=== PATIENT | male | born 1985 | race Caucasian/White ===

== ENCOUNTER 2016-07-18 15:04 | Emergency (ER) | payer BC, OTHER ==
[2016-07-18 15:09] VITALS: BP 121/80; PULSE 88; TEMP 97.5; BMI 38.4
[2016-07-18] MEDS ORDERED: DIPHTH,PERTUSS(ACELL),TET 0.5 ML DISP.SYRIN IM ONE (15:13)
--- NOTE | 2016-07-18 15:13 | PDOC ---
History of Present Illness - General History Source: Patient Exam Limitations: No Limitations - History of Present Illness Initial Comments: 07/18/16 15:27 The patient is a 30 year old male, with no significant past medical history, who presents today with a forehead laceration. The patient states that he was throwing a galvanized pipe into the garbage, when it rebounded and hit him in the head. He felt blood dripping down his forehead and came to the emergency department. Presently, there is minimal active bleeding. He had a wool hat on when the pipe hit his head. He denies LOC. The patient is unsure when his last tetanus shot was. Denies headache, lightheadedness, dizziness. Denies blurry vision, double vision, or other changes in vision. Denies any other trauma. Denies chest pain, SOB. Allergies: None reported <Krystal Montana - Last Filed: 07/18/16 17:01> - General History Source: Patient Exam Limitations: No Limitations <Natty Mir - Last Filed: 07/19/16 07:38> - General Chief Complaint: Laceration Stated Complaint: HEAD LAC Time Seen by Provider: 07/18/16 15:06 Past History <Krystal Montana - Last Filed: 07/18/16 17:01> <Natty iMr - Last Filed: 07/19/16 07:38> - Past Medical History Allergies/Adverse Reactions: Allergies Allergy/AdvReac Type Severity Reaction Status Date / Time No Known Allergies Allergy Verified 07/18/16 15:05 Home Medications: Ambulatory Orders Cephalexin Monohydrate [Keflex -] 500 mg PO Q6H #20 capsule 07/18/16 Fenofibrate 0 mg PO DAILY 07/18/16 Review of Systems - Review of Systems Able to Perform ROS?: Yes Comments:: 07/18/16 15:30 GENERAL/CONSTITUTIONAL: No: fever, chills, weakness, loss of appetite. HEAD, EYES, EARS, NOSE AND THROAT: No: change in vision, ear pain, discharge, sore throat, throat swelling. CARDIOVASCULAR: No: chest pain, lightheadedness, palpitations, syncope RESPIRATORY: No: cough, shortness of breath, wheezing, hemoptysis, stridor. GASTROINTESTINAL: No: nausea, vomiting, abdominal cramping, diarrhea, rectal bleeding, constipation. GENITOURINARY: No: dysuria, hematuria, frequency, urgency, flank pain. MUSCULOSKELETAL: No: back pain, neck pain, joint pain, muscle swelling or pain SKIN: Yes: laceration on the right forehead. No: lesions, pallor, rash or easy bruising. NEUROLOGIC: No: headache, vertigo, paresthesias, weakness ENDOCRINE: No: unexplained weight gain or loss HEMATOLOGIC/LYMPHATIC: No: anemia, easy bleeding, swelling nodes <Krystal Montana - Last Filed: 07/18/16 17:01> *Physical Exam - Vital Signs Last Vital Signs Temp Pulse Resp BP Pulse Ox 97.5 F L 88 16 121/80 100 07/18/16 15:04 07/18/16 15:04 07/18/16 15:04 07/18/16 15:04 07/18/16 15:04 - Physical Exam Comments: 07/18/16 15:30 GENERAL: The patient is in no acute distress. HEAD: +3cm laceration on the right forehead through the epidermis. Minimal active bleeding. EYES: PERRLA, EOMI, sclera anicteric, conjunctiva clear. HEART:Regular rate and rhythm, normal S1 and S2 without murmur, rub or gallop. EXTREMITIES: Normal range of motion, no edema. No clubbing or cyanosis. No erythema, or tenderness. NEUROLOGICAL: Cranial nerves II through XII grossly intact. Normal speech. No focal neurological deficits. <Krystal Montana - Last Filed: 07/18/16 17:01> Procedures - Laceration/Wound Repair Right Frontal Wound Length: 2.6 to 5.0 cm Wound Explored: clean Wound's Depth, Shape: superficial, linear Irrigated w/ Saline: Yes Betadine Prep: No Anesthesia: 1% Lidocaine Amount of Anesthetic (ccs): 3 Wound Debrided: minimal Wound Repaired With: Sutures Suture Size/Type: 5:0 Number of Sutures: 3 Layer Closure: No <Natty Mir - Last Filed: 07/19/16 07:38> ED Treatment Course - RADIOLOGY Radiograph Interpretation: 07/18/16 17:01 EXAM#: TYPE/EXAM: RESULT: [id number] CT/HEAD CT WITHOUT CONTRAST Status post trauma CT scan of the brain without intravenous contrast. The ventricles and basal cisterns appear unremarkable. No gross mass lesion, focal infarct or intracranial hemorrhage is identified. Mild mucosal thickening in the ethmoid air cells. Otherwise, the visualized paranasal sinuses and mastoid air cells are well-aerated. The calvarium is intact. There is mild soft tissue swelling over right side of the forehead. Impression: No evidence of a focal intracranial lesion or hemorrhage seen. Mild soft tissue swelling over right side of the forehead Reported By: Maksim Elizabeth MD 07/18/16 1632 <Krystal Montana - Last Filed: 07/18/16 17:01> Medical Decision Making - Medical Decision Making 07/18/16 15:08 A portion of this note was documented by scribe services under my direction. I have reviewed the details of the note, within reason, and agree with the documentation with the following case summary and management plan written by me. 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 <Krystal Montana - Last Filed: 07/18/16 17:01> - Discharge Dispostion Admit: No <Natty Mir - Last Filed: 07/19/16 07:38> Diagnosis at time of Disposition: Head trauma Qualifiers: Encounter type: initial encounter Qualified Code(s): S09.90XA - Unspecified injury of head, initial encounter Laceration of forehead Qualifiers: Encounter type: initial encounter Qualified Code(s): S01.81XA - Laceration without foreign body of other part of head, initial encounter - Discharge Dispostion Disposition: HOME Condition at time of disposition: Stable - Prescriptions Prescriptions: Cephalexin Monohydrate [Keflex -] 500 mg PO Q6H #20 capsule - Patient Instructions Printed Discharge Instructions: DI for Laceration Repair, DI for Closed Head Injury Additional Instructions: Turner Thank you for coming in to the ER today Please take antibiotics as prescribed Please return to the ER in 7 days for suture removal Return to the ER for surrounding reddness, drainage from the wound Please keep the wound clean Apply bacitracin
== END 2016-07-18 16:36 | disposition home or self-care (01) ==
LOC: FER 15:04
PROC: 3E0234Z Introduction of Serum, Toxoid and Vaccine into Muscle, Percutaneous Approach (ICD-10-PCS; principal; 2016-07-18)
DX: S01.81XA Laceration without foreign body of other part of head, initial encounter (principal); S09.90XA Unspecified injury of head, initial encounter; W20.8XXA Other cause of strike by thrown, projected or falling object, initial encounter; Y93.89 Activity, other specified; Y92.89 Other specified places as the place of occurrence of the external cause; Y99.0 Civilian activity done for income or pay
CPT/HCPCS: 70450-TC; 90471; 90715; 99283-25

== ENCOUNTER 2016-07-25 15:53 | Emergency (ER) | payer BC, OTHER ==
--- NOTE | 2016-07-25 16:03 | PDOC ---
History of Present Illness - General History Source: Patient, Old Records Exam Limitations: No Limitations - History of Present Illness Initial Comments: 07/25/16 16:05 The patient is a 30 year old male with no significant past medical history, who presents to the emergency department today for suture removal from his right forehead. The patient states that 7 days ago he was at work when he accidentally hit himself in the head with a piece of pipe. The patient presented to this ER and received 3 sutures. PAST MEDICAL HISTORY: no significant history reported. PAST SURGICAL HISTORY: no significant history reported. FAMILY HISTORY: no pertinent history reported. SOCIAL HISTORY: Pt is employed. No habits reported. MEDICATIONS: reviewed ALLERGIES: As per nursing notes <Teo Pichardo - Last Filed: 07/25/16 16:05> <Kin Briscoe - Last Filed: 07/25/16 16:07> - General Chief Complaint: Suture/Staple Removal(Here) Stated Complaint: RIGHT FOREHEAD SUTURE REMOVAL Time Seen by Provider: 07/25/16 15:55 Past History <Teo Pichardo - Last Filed: 07/25/16 16:05> - Past Medical History Hypercholesterolemia: Yes - Psycho/Social/Smoking Cessation Hx Anxiety: No Suicidal Ideation: No Smoking History: Current every day smoker Number of Cigarettes Smoked Daily: 10 'Breaking Loose' booklet given: 07/18/16 Hx Alcohol Use: Yes Drug/Substance Use Hx: No Substance Use Type: Alcohol <Kin Briscoe - Last Filed: 07/25/16 16:07> - Past Medical History Allergies/Adverse Reactions: Allergies Allergy/AdvReac Type Severity Reaction Status Date / Time No Known Allergies Allergy Verified 07/18/16 15:05 Home Medications: Ambulatory Orders Fenofibrate 40 mg PO DAILY 07/18/16 Review of Systems - Review of Systems Able to Perform ROS?: Yes Comments:: 07/25/16 16:06 CONSTITUTIONAL: Absent: Fever, Chills, Diaphoresis, Generalized Weakness, Malaise, Loss of Appetite HEENT: Present: 3 sutures located on the right forehead. Absent: Rhinorrhea, Nasal Congestion, Throat Pain, Throat Swelling, Difficulty Swallowing, Mouth Swelling, Ear Pain, Eye Pain, Visual Changes CARDIOVASCULAR: Absent: Chest Pain, Syncope, Palpitations, Irregular Heart Rate, Lightheadedness , Peripheral Edema MUSCULOSKELETAL: Absent: Myalgia, Arthralgia, Joint Swelling, Back pain, Neck Pain SKIN: Absent: Rash, Itching, Pallor <Teo Pichardo - Last Filed: 07/25/16 16:05> *Physical Exam - Physical Exam Comments: 07/25/16 16:06 GENERAL: The patient is awake, alert, and fully oriented, in no acute distress. HEAD: Wound located on right forehead is clean, dry, with no redness or discharge. EYES: Pupils equal, round and reactive to light, extraocular movements intact, sclera anicteric, conjunctiva clear. EXTREMITIES: Normal range of motion, no edema. Sensation intact. Circulation intact. NEUROLOGICAL: Normal speech, normal gait. PSYCH: Normal mood, normal affect. SKIN: Warm, Dry, normal turgor, no rashes or lesions noted. <Teo Pichardo - Last Filed: 07/25/16 16:05> Medical Decision Making - Medical Decision Making 07/25/16 16:07 Patient presents 7 days after laceration to the right forehead. He was seen here in the ED and had tetanus booster and CT scan of the head. He currently denies complaints. The wound is healing well. There is no redness or discharge. Sutures are removed, bacitracin applied, patient advised okay to shower and resume normal activities. <Kin Briscoe - Last Filed: 07/25/16 16:07> *DC/Admit/Observation/Transfer - Attestations Scribe Attestion: 07/25/16 16:06 Documentation prepared by Teo Pichardo, acting as adjunct faculty for medical terminology for Kin Briscoe MD. <Teo Pichardo - Last Filed: 07/25/16 16:05> - Discharge Dispostion Admit: No <Kin Briscoe - Last Filed: 07/25/16 16:07> Diagnosis at time of Disposition: Laceration of forehead Qualifiers: Encounter type: sequela Qualified Code(s): S01.81XS - Laceration without foreign body of other part of head, sequela - Discharge Dispostion Condition at time of disposition: Good - Patient Instructions Printed Discharge Instructions: DI for Suture Removal
[2016-07-25 16:08] VITALS: PULSE 84; TEMP 97.8; BMI 38.0
[2016-07-25 16:12] VITALS: BP 120/80
== END 2016-07-25 16:13 | disposition home or self-care (01) ==
LOC: FER 15:53
DX: Z48.02 Encounter for removal of sutures (principal)
CPT/HCPCS: 99282-25

== ENCOUNTER 2017-03-03 18:10 | Emergency (ER) | payer BC, OTHER ==
[2017-03-03 18:21] VITALS: BMI 39.9
--- NOTE | 2017-03-03 18:28 | PDOC ---
History of Present Illness - General History Source: Patient Exam Limitations: No Limitations - History of Present Illness Initial Comments: 03/03/17 18:56 The patient is 31 year old male, with significant past medical history of alcohol and cocaine use, who presents today complaining of restlessness and numbness and tingling in the lips, teeth and extremities after drinking alcohol and snorting cocaine for the last 3 days. He reports feeling clammy and has echoing in his ears. His last drink was on Thursday, 2 days ago, and he last used cocaine on Thursday night. He notes that he has been using cocaine recreationally for the past 15 years and has not had a reaction like this before. Denies chest pain, SOB, palpitations. Denies headache, dizziness. Denies fever, chills, nausea, vomiting. Denies visual changes. Allergies: NKDA Social Hx: Tobacco use. Alcohol use. Cocaine use. PCP- none <Krystal Montana - Last Filed: 03/03/17 18:55> - General History Source: Patient Exam Limitations: No Limitations <Natty Mir - Last Filed: 03/04/17 09:04> - General Stated Complaint: "DONT FEEL WELL" Time Seen by Provider: 03/03/17 18:22 Past History <Krystal Montana - Last Filed: 03/03/17 18:55> - Past Medical History Hypercholesterolemia: Yes - Immunization History TDAP Vaccination: (07/18/2016) Immunization Up to Date: Yes - Suicide/Smoking/Psychosocial Hx Smoking History: Current every day smoker Have you smoked in the past 12 months: Yes Number of Cigarettes Smoked Daily: 15 Information on smoking cessation initiated: Yes 'Breaking Loose' booklet given: 03/03/17 Hx Alcohol Use: Yes Drug/Substance Use Hx: No Substance Use Type: Alcohol <Natty Mir - Last Filed: 03/04/17 09:04> - Past Medical History Allergies/Adverse Reactions: Allergies Allergy/AdvReac Type Severity Reaction Status Date / Time No Known Allergies Allergy Verified 03/03/17 18:18 Home Medications: Ambulatory Orders Fenofibrate 145 mg PO DAILY 07/18/16 Review of Systems - Review of Systems Able to Perform ROS?: Yes Comments:: 03/03/17 18:56 GENERAL/CONSTITUTIONAL: +restlessness. +Clammy No: fever, chills, weakness, loss of appetite. HEAD, EYES, EARS, NOSE AND THROAT: No: change in vision, ear pain, discharge, sore throat, throat swelling. CARDIOVASCULAR: No: chest pain, lightheadedness, palpitations, syncope RESPIRATORY: No: cough, shortness of breath, wheezing, hemoptysis, stridor. GASTROINTESTINAL: No: nausea, vomiting, abdominal cramping, diarrhea, rectal bleeding, constipation. GENITOURINARY: No: dysuria, hematuria, frequency, urgency, flank pain. MUSCULOSKELETAL: No: back pain, neck pain, joint pain, muscle swelling or pain SKIN: No: lesions, pallor, rash or easy bruising. NEUROLOGIC: +numbness and tingling of all extremities. No: headache, vertigo, weakness ENDOCRINE: No: unexplained weight gain or loss HEMATOLOGIC/LYMPHATIC: No: anemia, easy bleeding, swelling nodes <Krystal Montana - Last Filed: 03/03/17 18:55> *Physical Exam - Vital Signs Last Vital Signs Temp Pulse Resp BP Pulse Ox 98.8 F 93 H 18 140/84 97 03/03/17 18:10 03/03/17 18:10 03/03/17 18:10 03/03/17 18:10 03/03/17 18:10 - Physical Exam Comments: 03/03/17 18:56 GENERAL: The patient is very anxious. Tremulous HEAD: Normal with no signs of trauma. EYES: PERRLA, EOMI, sclera anicteric, conjunctiva clear. ENT: Tongue fasciculations. Ears normal, nares patent, oropharynx clear without exudates. Moist mucous membranes. NECK: Normal range of motion, supple without lymphadenopathy, JVD, or masses. LUNGS: Breath sounds equal, clear to auscultation bilaterally. No wheezes, and no crackles. HEART:Regular rate and rhythm, normal S1 and S2 without murmur, rub or gallop. ABDOMEN: Soft, nontender, normoactive bowel sounds. No guarding, no rebound. EXTREMITIES: Normal range of motion, no edema. No clubbing or cyanosis. No erythema, or tenderness. NEUROLOGICAL: Tremulous. Cranial nerves II through XII grossly intact. Normal speech. No focal neurological deficits. MUSCULOSKELETAL: Back nontender to palpation, no CVA tenderness SKIN: Warm, Dry, normal turgor, no rashes or lesions noted. <Krystal Montana - Last Filed: 03/03/17 18:55> - Vital Signs Last Vital Signs Temp Pulse Resp BP Pulse Ox 98.8 F 93 H 18 140/84 97 03/03/17 18:10 03/03/17 18:10 03/03/17 18:10 03/03/17 18:10 03/03/17 18:10 <Natty Mir - Last Filed: 03/04/17 09:04> Heart Score/ECG Review #1 ECG reviewed & interpreted by me at: 19:18 03/03/17 19:18 Twelve-lead EKG was performed and reviewed by me. There is normal sinus rhythm with a normal rate of 91 bpm. The axis is normal. The intervals are normal - pr: 168ms, QRS:110ms, QTc:487ms. There are no ST or T wave abnormalities. Impression: Normal twelve-lead EKG <Natty Mir - Last Filed: 03/04/17 09:04> ED Treatment Course - LABORATORY CBC & Chemistry Diagram: 03/03/17 18:50 03/03/17 18:50 <Natty Mir - Last Filed: 03/04/17 09:04> Medical Decision Making - Medical Decision Making 03/03/17 18:27 A portion of this note was documented by scribe services under my direction. I have reviewed the details of the note, within reason, and agree with the documentation with the following case summary and management plan written by me. Nursing documentation reviewed and incorporated into medical decision making This patient is a 31-year-old male who presents to the emergency department accompanied by his with a complaint of "I don't feel well". Patient states that he had a prior history of substance abuse Most recently, he has had binges of alcohol and cocaine use Pt is unable to tell me how much alcohol he has drank over the weekend He is unable to tell me how much Cocaine he has used He denies chest pain He reports hearing loss, then reports that he hears his family members speaking He denies headache He denies shortness of breath He denies DT, seizures in the past Pt does NOT want to do detox program He denies any traumatic injury He is here today because he is worried that something might be wrong with him Pt is anxious He has pressured speech No tachycardia Tongue fasciculations Hands tremulous Pt eyes wide Pupils 4mm bilaterally, reactive to light Will do labs Pt given Banana bag Will give Ativan and Librium to prevent withdrawal Pt may benefit from overnight stay Will re assess PT at bedside Pt signed out to Dr Moise <Natty Mir - Last Filed: 03/04/17 09:04> *DC/Admit/Observation/Transfer - Attestations Scribe Attestion: 03/03/17 18:56 Documentation prepared by CLAUDY Cisneros, acting as district medical examiner for Natty Mir MD. <Krystal Montana - Last Filed: 03/03/17 18:55> <Natty Mir - Last Filed: 03/04/17 09:04> Diagnosis at time of Disposition: Alcohol withdrawal, Cocaine use - Discharge Dispostion Disposition: HOME Condition at time of disposition: Stable - Referrals Referrals: Ines Rojas MD [Staff Physician] - - Patient Instructions Printed Discharge Instructions: DI for Alcohol Abuse Additional Instructions: Please follow up with your PMD. Please return to the ED with any further concerns. Please stop drinking alcohol and stop using cocaine.
[2017-03-03] MEDS ORDERED: MULTIVIT INJ. ADULT COMBO WITH VIT K 1 COMBO 10 ML VIAL IV ONE (19:01)
[2017-03-03] MEDS ORDERED: FOLIC ACID 5 MG/1 ML ONE (19:01)
[2017-03-03] MEDS ORDERED: FOLIC ACID INJECTION - 1 MG, THIAMINE HCL 100 MG, MULTIVIT INJECTION ADULT 10 ML in SOD... IVPB ONE (19:11)
[2017-03-03] MEDS ORDERED: chlordiazePOXIDE HCL 25 MG CAPSULE PO ONE (19:14)
[2017-03-03 19:16] LABS: ANION GAP 9 (8-16); CALCIUM 9.5 mg/dl (8.4-10.2); CO2 26 mmol/L (22-28); GLUCOSE,RANDOM 87 mg/dl (74-106)
[2017-03-03] MEDS ORDERED: chlordiazePOXIDE HCL 25 MG CAPSULE ONE (19:18)
[2017-03-03 19:23] LABS: BASOPHIL 0.3 % (0-2.0); EOSINOPHIL 2.3 % (0-4.5); MCHC 35.1 g/dl (32.0-35.9); MEAN CELL VOLUME 88.2 fl (80-96); MEAN PLT VOLUME 9.5 fl (7.5-11.1); NEUTROPHILS 66.3 % (42.8-82.8); PLATELET COUNT 186 K/MM3 (134-434); RDW 11.5 % (11.9-15.9); WHITE BLOOD COUNT 12.1 K/mm3 (4.0-10.8)
[2017-03-03 19:26] LABS: ALCOHOL < 5.0 mg/dl (0-5)
[2017-03-03 19:32] LABS: TROPONIN I (DFP) < 0.03 ng/ml (0.03-0.50)
--- NOTE | 2017-03-03 19:46 | PDOC ---
*Physical Exam - Vital Signs Last Vital Signs Temp Pulse Resp BP Pulse Ox 98.8 F 93 H 18 140/84 97 03/03/17 18:10 03/03/17 18:10 03/03/17 18:10 03/03/17 18:10 03/03/17 18:10 - Physical Exam Comments: 03/03/17 20:12 Constitutional: Awake, alert, oriented. Anxious Head: Normocephalic. Atraumatic Eyes: PERRL. EOMI. Conjunctivae are not pale. ENT: Not tongue fasciculating. Mucous membranes are moist and intact. Posterior pharynx without exudates or erythema. Uvula midline. Neck: Supple. Full ROM. No lymphadenopathy. Cardiovascular: Regular rate. Regular rhythm. S1, S2 regular. Distal pulses are 2+ and symmetric. Pulmonary/Chest: No evidence of respiratory distress. Clear to auscultation bilaterally No wheezing, rales or rhonchi. Abdominal: Soft and non-distended. There is no tenderness. No rebound, guarding or rigidity. No organomegaly. No palpable masses. Good bowel sounds. Back: No CVA tenderness. Musculoskeletal: No edema. No cyanosis. No clubbing. Full range of motion in all extremities. Nocalf tenderness. Radial/pedal pulses are intact and 2+ bilaterally Skin: Skin is warm and dry. No petechiae. No purpura. Neurological: Not tremulous. Alert and oriented to person, place, and time. Cranial nerves II-XII are grossly intact. Normal speech. Strength is grossly symmetric. No sensory deficits. <Krystal Montana - Last Filed: 03/03/17 20:12> - Vital Signs Last Vital Signs Temp Pulse Resp BP Pulse Ox 98.8 F 93 H 18 140/84 97 03/03/17 18:10 03/03/17 18:10 03/03/17 18:10 03/03/17 18:10 03/03/17 18:10 <Alina Moise - Last Filed: 03/03/17 20:32> ED Treatment Course - LABORATORY CBC & Chemistry Diagram: 03/03/17 18:50 03/03/17 18:50 - ADDITIONAL ORDERS Additional order review: Laboratory Results 03/03/17 03/03/17 18:50 18:50 Sodium 133 L Potassium 4.2 Chloride 98 Carbon Dioxide 26 Anion Gap 9 BUN 10 Creatinine 1.0 Random Glucose 87 Calcium 9.5 Troponin I < 0.03 L Alcohol, Quantitative < 5.0 03/03/17 18:50 RBC 5.14 MCV 88.2 MCHC 35.1 RDW 11.5 L MPV 9.5 Neutrophils % 66.3 Lymphocytes % 24.6 Monocytes % 6.5 Eosinophils % 2.3 Basophils % 0.3 - Medications Given in the ED: ED Medications Discontinued Medications Generic Name Dose Route Start Last Admin Trade Name Freq PRN Reason Stop Dose Admin Chlordiazepoxide HCl 25 mg 03/03/17 19:14 03/03/17 19:20 Librium - PO 03/03/17 19:15 25 mg ONCE ONE Administration Lorazepam 2 mg 03/03/17 19:11 03/03/17 19:00 Ativan Injection - IVPUSH 03/03/17 19:12 2 mg ONCE ONE Administration <Krystal Montana - Last Filed: 03/03/17 20:12> - LABORATORY CBC & Chemistry Diagram: 03/03/17 18:50 03/03/17 18:50 - ADDITIONAL ORDERS Additional order review: Laboratory Results 03/03/17 03/03/17 18:50 18:50 Sodium 133 L Potassium 4.2 Chloride 98 Carbon Dioxide 26 Anion Gap 9 BUN 10 Creatinine 1.0 Random Glucose 87 Calcium 9.5 Troponin I < 0.03 L Alcohol, Quantitative < 5.0 03/03/17 18:50 RBC 5.14 MCV 88.2 MCHC 35.1 RDW 11.5 L MPV 9.5 Neutrophils % 66.3 Lymphocytes % 24.6 Monocytes % 6.5 Eosinophils % 2.3 Basophils % 0.3 - Medications Given in the ED: ED Medications Discontinued Medications Generic Name Dose Route Start Last Admin Trade Name Freq PRN Reason Stop Dose Admin Chlordiazepoxide HCl 25 mg 03/03/17 19:14 03/03/17 19:20 Librium - PO 03/03/17 19:15 25 mg ONCE ONE Administration Lorazepam 2 mg 03/03/17 19:11 03/03/17 19:00 Ativan Injection - IVPUSH 03/03/17 19:12 2 mg ONCE ONE Administration <Alina Moise - Last Filed: 03/03/17 20:32> Medical Decision Making - Medical Decision Making 03/03/17 20:13 31 yr old male who comes in s/p alcohol intoxication and cocaine use for 3 days. -States that he used a new type of cocaine -He is anxious -Not tachycardic -Not tongue fasciculating -Not tremulous -Discharge to home after Banana bag is finished - Discussed his drug and alcohol use. He states that he has been drinking 2 days a month for 15 years and also been using cocaine for 2 days a month for 15 years and does not want to stop. He does not want detox or help with drug alcohol use <Krystal Montana - Last Filed: 03/03/17 20:12> - Medical Decision Making 03/03/17 20:30 pt re eval: states feeling better. states he uses etoh and cocaine 2x per month. does not want help for detox or to stay for alcohol withdrawal. discussed risks of alcohol withdrawal. states if he feels worse he will come back. no tongue fasiculations, no tremors. Heart RRR Pt appears anxious. Pt states he will follow up with the [facility] PMD. Denies all other complaints. Pt stable for d/c to home. <Alina Moise - Last Filed: 03/03/17 20:32> *DC/Admit/Observation/Transfer <Krystal Montana - Last Filed: 03/03/17 20:12> - Discharge Dispostion Admit: No - Attestations Physician Attestion: 03/03/17 20:32 I, Dr. Alina Moise, DO, attest that this document has been prepared under my direction and personally reviewed by me in its entirety. I further attest, that it accurately reflects all work, treatment, procedures and medical decision -making performed by me. <Alina Moise - Last Filed: 03/03/17 20:32> Diagnosis at time of Disposition: Alcohol withdrawal syndrome, Cocaine abuse - Discharge Dispostion Disposition: HOME - Referrals Referrals: Ines Rojas MD [Staff Physician] - - Patient Instructions Printed Discharge Instructions: DI for Alcohol Abuse Additional Instructions: Please follow up with your PMD. Please return to the ED with any further concerns. Please stop drinking alcohol and stop using cocaine.
[2017-03-03 20:49] VITALS: BP 119/68; PULSE 86; TEMP 98.1
--- NOTE | 2017-03-04 18:42 | EKG ---
Test Reason : Blood Pressure : / mmHG Vent. Rate : 091 BPM Atrial Rate : 091 BPM P-R Int : 168 ms QRS Dur : 110 ms QT Int : 396 ms P-R-T Axes : 039 -21 033 degrees QTc Int : 487 ms NORMAL SINUS RHYTHM PROLONGED QT RVCD NO PREVIOUS ECGS AVAILABLE Confirmed by MD ELOISA, MITUL ([id number]) on 03/04/2017 6:42:03 PM Referred By: DR HAAS Confirmed By:MITUL AMIN MD
== END 2017-03-03 20:48 | disposition home or self-care (01) ==
LOC: FER 18:10
PROC: 3E033GC Introduction of Other Therapeutic Substance into Peripheral Vein, Percutaneous Approach (ICD-10-PCS; principal; 2017-03-03)
PROC: 3E033NZ Introduction of Analgesics, Hypnotics, Sedatives into Peripheral Vein, Percutaneous Approach (ICD-10-PCS; 2017-03-03)
DX: F14.90 Cocaine use, unspecified, uncomplicated (principal); F10.239 Alcohol dependence with withdrawal, unspecified; E78.00 Pure hypercholesterolemia, unspecified; F17.210 Nicotine dependence, cigarettes, uncomplicated
CPT/HCPCS: 36415; 80048; 80307; 84484; 85025; 93005; 99285-25

== ENCOUNTER 2017-10-24 07:15 | Emergency (ER) | payer BC ==
[2017-10-24] MEDS ORDERED: MECLIZINE HCL 25 MG TABLET (FP) PO ONE (07:19)
[2017-10-24] MEDS ORDERED: ONDANSETRON 4 MG/2 ML VIAL IVPUSH ONE (07:19)
--- NOTE | 2017-10-24 07:19 | PDOC ---
History of Present Illness - General Chief Complaint: Lightheaded Stated Complaint: DIZZY Time Seen by Provider: 10/24/17 07:18 History Source: Patient Exam Limitations: No Limitations - History of Present Illness Initial Comments: 10/24/17 07:31 31 yo male history of high cholesterol, history of alcohol and drug abuse including cocaine and comes in today complaining of dizziness nausea and vomiting. Patient states symptoms began 1 hour ago while driving he suddenly felt like the room was spinning since she is unable to walk due to severe dizziness and vertigo like sensation. Denies any chest pain or shortness of breath. Denies any recent alcohol states his last drink was several weeks ago. Denies any other drug use in the last 24 hours no sick contacts no travel no fevers or chills no abdominal pain. Most recent episode of emesis was coffee- ground withsome blood 10/24/17 07:32 Past History - Past Medical History Allergies/Adverse Reactions: Allergies Allergy/AdvReac Type Severity Reaction Status Date / Time No Known Allergies Allergy Verified 10/24/17 08:48 Home Medications: Ambulatory Orders Fenofibrate 145 mg PO DAILY 07/18/16 Meclizine HCl 25 mg PO QID PRN #30 tablet 10/24/17 Hypercholesterolemia: Yes - Immunization History TDAP Vaccination: (07/18/2016) Immunization Up to Date: Yes - Suicide/Smoking/Psychosocial Hx Smoking History: Current every day smoker Have you smoked in the past 12 months: Yes Number of Cigarettes Smoked Daily: 15 'Breaking Loose' booklet given: 03/03/17 Hx Alcohol Use: Yes Drug/Substance Use Hx: No Substance Use Type: Alcohol Review of Systems - Review of Systems Constitutional: No: Chills, Diaphoresis, Fever HEENTM: No: Eye Pain Respiratory: No: Cough, Shortness of Breath Cardiac (ROS): No: Chest Pain, Edema ABD/GI: Yes: Vomiting. No: Abdominal Distended Musculoskeletal: No: Back Pain, Gout Integumentary: No: Bruising All Other Systems: Reviewed and Negative *Physical Exam - Physical Exam General Appearance: Yes: Appropriately Dressed, Obese HEENT: positive: Normal ENT Inspection, Other (moist mucous membranes, diaphoretic) Respiratory/Chest: positive: Lungs Clear, Normal Breath Sounds Cardiovascular: positive: Regular Rhythm, Regular Rate, S1, S2 Gastrointestinal/Abdominal: positive: Normal Bowel Sounds, Flat, Soft. 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 pox prakash hallpike) Heart Score/ECG Review #1 General ECG Interpretation: Sinus Rhythm (71), Normal Rate, Normal Intervals, No acute ischemic changes ED Treatment Course - LABORATORY CBC & Chemistry Diagram: 10/24/17 08:12 10/24/17 08:12 Medical Decision Making - Medical Decision Making 10/24/17 07:18 31 yo male wit h/o prior vertigo here with n/v and room spinning. normal cerebellar exam. plan ivf, antiemetics, ivf, labs. reassess. differential includes, etoh withdrawal, cocain intox, heroin or other opiate withdrawal, pancreatitis. gastritis, florence cara. ugi bleed. protonix . ivf. 10/24/17 07:34 10/24/17 14:04 pt feeling much improved. normal gait, normal cerebellar exam. head ct normal. dc home with family. [facility] outpt followup *DC/Admit/Observation/Transfer Diagnosis at time of Disposition: Positional vertigo - Discharge Dispostion Disposition: HOME Condition at time of disposition: Improved Decision to Admit order: No - Prescriptions Prescriptions: Meclizine HCl 25 mg PO QID PRN #30 tablet PRN Reason: Vertigo - Referrals Referrals: Serge Umana MD [Staff Physician] - - Patient Instructions Printed Discharge Instructions: Benign Paroxysmal Positional Vertigo Additional Instructions: you can take meclizine 25 mg every 8 hours as needed for dizziness. follow up with a neurologist . call to schedule. return for any inability to walk, persistant symtpoms beyond one week or any concerns. follow up with your primary doctor call to schedule. - Post Discharge Activity
[2017-10-24] MEDS ORDERED: SODIUM CHLORIDE 0.9% 1000 ML INFUS.BAG IV ONE (07:20)
[2017-10-24 08:12] VITALS: TEMP 97.2; BMI 41.3
[2017-10-24 08:32] LABS: ALBUMIN 4.4 g/dl (3.5-5.0); ALK PHOS 49 U/L (32-92); ANION GAP 11 (8-16); BILIRUBIN,TOTAL 0.5 mg/dl (0.2-1.0); BLOOD UREA NITROGEN 20 mg/dl (7-18); CALCIUM 9.5 mg/dl (8.4-10.2); CHLORIDE 105 mmol/L (98-107); CO2 19 mmol/L (22-28); GLUCOSE,RANDOM 140 mg/dl (74-106); POTASSIUM 4.1 mmol/L (3.5-5.1); SGOT/AST 40 U/L (10-42); SGPT/ALT 73 U/L (10-40); SODIUM 135 mmol/L (136-145); TOT PROT 7.2 g/dl (6.4-8.3)
[2017-10-24 08:47] LABS: CREATININE 0.8 mg/dl (0.6-1.3)
[2017-10-24] MEDS ORDERED: PANTOPRAZOLE SODIUM 40 MG VIAL IVPUSH ONE (08:52)
[2017-10-24] MEDS ORDERED: PANTOPRAZOLE SODIUM 40 MG VIAL ONE (09:08)
--- NOTE | 2017-10-24 09:22 | EKG ---
Test Reason : Blood Pressure : / mmHG Vent. Rate : 071 BPM Atrial Rate : 071 BPM P-R Int : 172 ms QRS Dur : 106 ms QT Int : 444 ms P-R-T Axes : 096 -04 024 degrees QTc Int : 482 ms NORMAL SINUS RHYTHM PROLONGED QT ABNORMAL ECG WHEN COMPARED WITH ECG OF 03-MAR-2017 18:30, NO SIGNIFICANT CHANGE WAS FOUND Confirmed by SRIDHAR LAWLER, JU ([id number]) on 10/24/2017 9:21:38 AM Referred By: KIRK BORJA Confirmed By:JU WALLER MD
[2017-10-24 09:39] LABS: BASO % 0.7 % (0-2.0); EOS % 3.4 % (0-4.5); HEMATOCRIT 44.1 % (35.4-49); HEMOGLOBIN 15.7 GM/dL (11.7-16.9); LYMPH % 40.1 % (8-40); MCH 31.3 pg (25.7-33.7); MCHC 35.5 g/dl (32.0-35.9); MEAN CELL VOLUME 88.2 fl (80-96); MEAN PLT VOLUME 9.9 fl (7.5-11.1); MONO % 8.7 % (3.8-10.2); NEUT % 47.1 % (42.8-82.8); PLATELET COUNT 207 K/MM3 (134-434); RDW 12.7 % (11.9-15.9); WHITE BLOOD COUNT 10.6 K/mm3 (4.0-10.0)
[2017-10-24] MEDS ORDERED: METOCLOPRAMIDE HCL INJECTION 10 MG/2 ML VIAL IVPUSH ONE (12:25)
[2017-10-24 13:37] LABS: COCAINE, UR NEGATIVE ng/ml (CUTOFF=300); METHADONE, UR NEGATIVE ng/ml (CUTOFF=300); OPIATES, URI NEGATIVE ng/ml (CUTOFF=300); PHENCYCLIDINE,URINE NEGATIVE ng/ml (CUTOFF=25); URINE AMPHETAMINES NEGATIVE ng/ml (CUTOFF=500); URINE BARBITURATES NEGATIVE ng/ml (CUTOFF=200); URINE BENZODIAZEPINES NEGATIVE ng/ml (CUTOFF=200)
[2017-10-24 13:50] VITALS: BP 114/79; PULSE 68
== END 2017-10-24 14:18 | disposition home or self-care (01) ==
LOC: FER 07:15
PROC: 3E033NZ Introduction of Analgesics, Hypnotics, Sedatives into Peripheral Vein, Percutaneous Approach (ICD-10-PCS; principal; 2017-10-24)
PROC: 3E033GC Introduction of Other Therapeutic Substance into Peripheral Vein, Percutaneous Approach (ICD-10-PCS; 2017-10-24)
PROC: 3E0337Z Introduction of Electrolytic and Water Balance Substance into Peripheral Vein, Percutaneous Approach (ICD-10-PCS; 2017-10-24)
DX: H81.10 Benign paroxysmal vertigo, unspecified ear (principal); E78.00 Pure hypercholesterolemia, unspecified; F17.210 Nicotine dependence, cigarettes, uncomplicated
CPT/HCPCS: 36415; 70450-TC; 80053; 80307; 83690; 85025; 93005; 99284-25; J7030

== ENCOUNTER 2018-08-12 10:56 | Emergency (ER) | payer BC ==
--- NOTE | 2018-08-12 10:58 | PDOC ---
History of Present Illness - General Chief Complaint: Sore Throat Stated Complaint: SORE THROAT Time Seen by Provider: 08/12/18 10:56 History Source: Patient Exam Limitations: No Limitations - History of Present Illness Initial Comments: 08/12/18 10:59 32 year old male with PMH ETOH abuse, cocaine abuse, HLD, vertigo presented to ED for sore throat this morning. Pt admitted to ETOH use x3 days after 9 months sober, he stated nothing changed in his life, "I just wanted to drink so I drank." Pt admitted to drinking 2 bottles of Abraham Bucio, 1 bottle of Baileys and 1 bottle of Vodka in the last three days. Pt stated he came to the ED soley for his sore throat, and does not want rehab. He stated "I have my own therapist and can seek help there". Pt denied sick contacts, fever, chills, vomiting, body aches, diarrhea, chest pain, shortness of breath. Allergies: NKDA Past History - Past Medical History Allergies/Adverse Reactions: Allergies Allergy/AdvReac Type Severity Reaction Status Date / Time No Known Allergies Allergy Verified 08/12/18 10:59 Home Medications: Ambulatory Orders Fenofibrate 145 mg PO DAILY 07/18/16 COPD: No Hypercholesterolemia: Yes - Immunization History TDAP Vaccination: (07/18/2016) Immunization Up to Date: Yes - Suicide/Smoking/Psychosocial Hx Smoking History: Current every day smoker Have you smoked in the past 12 months: Yes Number of Cigarettes Smoked Daily: 15 'Breaking Loose' booklet given: 03/03/17 Hx Alcohol Use: Yes Drug/Substance Use Hx: No Substance Use Type: Alcohol Review of Systems - Review of Systems Able to Perform ROS?: Yes Comments:: 08/12/18 10:57 General: denied fever, chills, night sweats, generalized weakness. HEENT: admitted to sore throat. denied ear pain. Heart: denied chest pain, palpitations, syncope, diaphoresis. Respiratory: denied shortness of breath, cough, sputum production, hemoptysis. Abdomen: denied abdominal pain, nausea, vomiting, diarrhea, constipation, blood in stool. : denied dysuria, increased urinary frequency, hematuria, urinary incontinence , flank pain. Back: denied back pain. Musculoskeletal: denied joint pain, muscle pain, joint swelling. Neurological: denied headache, dizziness, numbness, tingling, weakness. Skin: denied rash, laceration, abrasion. *Physical Exam - Physical Exam Comments: 08/12/18 10:57 Constitutional: Well-nourished, Well-developed, appearing stated age. HEENT: head is normocephalic, atraumatic. EOMI. PERRLA. no posterior pharyngeal erythema. no tonsillar swelling bilaterally. no tonsillar exudates bilaterally. TM no bulging or erythema bilaterally. no tongue fasciulations. Neck: supple. Full ROM. Heart: regular rhythm. no murmurs, rubs or gallops. Lungs: clear to auscultation bilaterally. no crackles, rhonchi or wheezing. no stridor. Abdomen: soft, nontender. normal bowel sounds. no rebound, guarding, masses. Extremities: Peripheral pulses intact. No lower extremity edema. Neurological: CN 2-12 grossly intact. Moves all four extremities. no tremor. Psych: awake, alert, oriented x3. Follows commands. Answers questions appropriately. Medical Decision Making - Medical Decision Making 08/12/18 10:58 32 year old male with PMH ETOH abuse, cocaine abuse, vertigo, HLD presented to ED for sore throat since this morning. Initial Vital Signs Temp Pulse Resp BP Pulse Ox 98.5 F 85 18 114/81 97 08/12/18 10:56 08/12/18 10:56 08/12/18 10:56 08/12/18 10:56 08/12/18 10:56 Afebrile. No tachycardia. No tachypnea. Normal BP. No hypoxia on room air. Labs ordered: none Imaging ordered: none Medications ordered: none Pt appears well, no high fever, no n/v/d, no posterior pharyngeal erythema, no tonsillar swelling/exudates, no comorbidites, no immunosuppression, no clinical evidence of detox. No indication for influenza testing. Pt has URI. Pt discharged with instructions to follow up with PCP and therapist. *DC/Admit/Observation/Transfer Diagnosis at time of Disposition: URI (upper respiratory infection) - Discharge Dispostion Disposition: HOME Condition at time of disposition: Stable Decision to Admit order: No - Referrals - Patient Instructions Printed Discharge Instructions: DI for Alcohol Abuse, DI for Viral Pharyngitis Additional Instructions: You were seen today for sore throat. You likely have a viral upper respiratory infection which will heal on its own. Take Tylenol 1000 mg up to three times a day for your pain or fever. Drinks lots of clear fluids like water to stay hydrated. Please follow up with your primary care doctor and therapist regarding your drinking in the next 2-3 days. Return to the Emergency Department for fever>104F with Tylenol use, fever>5 days, chest pain, shortness of breath, or any other new, worsening or concerning symptoms. - Post Discharge Activity Forms/Work/School Notes: Back to Work
[2018-08-12 10:59] VITALS: BP 114/81; PULSE 85; TEMP 98.5; BMI 38.4
--- NOTE | 2018-08-12 11:03 | PDOC ---
Attending Attestation - Resident Resident Name: Suad Oakley - HPI HPI: 08/12/18 11:30 Pt presents to the ED complaining of a one day history of runny nose, nasal congestion and sore throat. Denies fever. Tolerating PO. Complaining of mild , non productive cough. Presented to the ED today because he had a very hoarse voice on awakening, which has since improved. - Physicial Exam PE: 08/12/18 11:31 Agree with resident exam. Patient is alert and oriented and in no distress. Lungs are clear. Heart has regular rate and rhythm with no murmurs. Throat has no tonsillar swelling, erythema or exudate. - Medical Decision Making 08/12/18 11:36 Pt presents to the ED complaining of nasal congestion and mild shortness of breath consistent with viral URI. History and exam is inconsistent with strep throat or flu. Will advise to take motrin over the counter for throat pain and discharge home.
== END 2018-08-12 11:30 | disposition home or self-care (01) ==
LOC: FER 10:56
DX: J06.9 Acute upper respiratory infection, unspecified (principal)
CPT/HCPCS: 99282-25

== ENCOUNTER 2022-07-10 07:57 | Emergency (ER) | payer BC ==
[2022-07-10] MEDS ORDERED: DIPHTH,PERTUSS(ACELL),TET 0.5 ML DISP.SYRIN IM ONE ×2 (08:06→08:28)
[2022-07-10 08:08] VITALS: BP 137/90; PULSE 87; RESP 20; TEMP 98.2; BMI 39.9
== END 2022-07-10 08:35 | disposition home or self-care (01) ==
LOC: FER 07:57
PROC: 0HQGXZZ Repair Left Hand Skin, External Approach (ICD-10-PCS; principal; 2022-07-10)
PROC: 3E0234Z Introduction of Serum, Toxoid and Vaccine into Muscle, Percutaneous Approach (ICD-10-PCS; 2022-07-10)
DX: S61.012A Laceration without foreign body of left thumb without damage to nail, initial encounter (principal); W26.0XXA Contact with knife, initial encounter
CPT/HCPCS: 90715; 99282-25